=== PATIENT | female | born 1945 | race Caucasian/White ===

== ENCOUNTER 2016-05-28 16:11 | Inpatient (IN) | payer MEDICARE ==
--- NOTE | ~2016-05-28 | HP ---
History And Physical [place] [id number] [facility] [place]. [address] NAME: NELLA KOVACS : 47 STATUS : DIS IN PAT#: [id number] AGE: 71 ADM/REG DATE : 05/28/16 MR#: [id number] REPORT SERV DATE: 07/21/16 DICTATED BY: MASON BIRD DATE: 07/12/16 REPORT STATUS : Draft TRANSCRIBED BY: DYLAN DATE: 07/12/16 DATE OF ADMISSION: 05/28/2016 ADMITTING DIAGNOSES: 1. Deep venous thrombosis. 2. Endometrial carcinoma. HISTORY OF PRESENT ILLNESS: Ms. Nella Kovacs is a 71-year-old female, who was admitted secondary to DVT. She presented with complaint of increasing pain in her lower extremities. Recent studies revealed a new DVT. PAST MEDICAL HISTORY: Her past medical history is consistent with the above-mentioned endometrial carcinoma as well as a history of a carcinoid tumor with anxiety. MEDICATIONS: Current medications include multivitamins and supplements and trazodone. PAST SURGICAL HISTORY: Previous endometrial cancer staging. SOCIAL HISTORY: Negative for any tobacco, alcohol, or illicit drug use. PHYSICAL EXAMINATION: GENERAL: On physical exam, she is awake, alert, and oriented x3 with intact memory, appears to be in no apparent distress. HEENT: Reveals no gross defects. Her extraocular movements are symmetrical and intact. Ears and nose are without defects or lesions. Her hearing is intact and normal for age. NECK: Her neck is symmetrical and supple without thyromegaly or adenopathy. BACK: Her back reveals a straight spine without CVA tenderness. ABDOMEN: Her abdomen is soft, nontender with no palpable masses. HEART: Regular rate and rhythm without abnormal noises. LUNGS: Clear to auscultation bilaterally. EXTREMITIES: Her extremities have some swelling in the lower extremities consistent with her diagnosis of DVT. In summary, this is a 71-year-old female with a history of endometrial carcinoma and carcinoid who now has a DVT. We will continue Lovenox, begin Xarelto and when her symptoms have improved, she will be discharged to home with instructions to follow up at [facility]. JOY/DYLAN Mason Bird M.D. / [id number]
[~2016-05-28 16:11] MED LIST: ALLEGRA180 PO; COMP10B PO; PCET PO; TRANXENE T7.5 MG OR; [UNRECOGNIZED DRUG - OTHER]
[2016-05-28] MEDS ORDERED: B COMPLETE PO (17:05)
[2016-05-28] MEDS ORDERED: VITC500 PO (17:06)
[2016-05-28] MEDS ORDERED: VITE1000 PO (17:07)
[2016-05-28] MEDS ORDERED: VITAMIN D31000 UNIT PO (17:07)
[2016-05-28] MEDS ORDERED: Fish Oil PO (17:08)
[2016-05-28] MEDS ORDERED: OS500+D PO (17:08)
[2016-05-28] MEDS ORDERED: MULTIPLE VIT PO (17:09)
[2016-05-28] MEDS ORDERED: CO Q-10 PO (17:10)
[2016-05-28 18:01] LABS: BASOPHILS ABSOLUTE 0.06 10/3/uL (0.0-0.16); EOSINOPHILS 5.5 %; EOSINOPHILS ABSOLUTE 0.32 10/3/uL (0.0-0.53); HEMATOCRIT 39.1 % (36.0-48.0); HEMOGLOBIN 12.9 g/dL (12.0-16.0); IMMATURE GRANULOCYTES 0.2 %; IMMATURE GRANULOCYTES ABSOLUTE 0.01 10/3/uL (0.0-0.11); LYMPHOCYTES 24.9 %; LYMPHOCYTES ABSOLUTE 1.46 10/3/uL (0.67-4.30); MEAN CORPUSCULAR HEMOGLOB 29.9 pg (26.0-34.0); MONOCYTES ABSOLUTE 0.76 10/3/uL (0.21-1.20); NEUTROPHILS 55.4 %; NEUTROPHILS ABSOLUTE 3.25 10/3/uL (2.02-8.40); PLATELET COUNT 172 10/3/uL (150-400); RBC DISTRIBUTION WIDTH 13.9 % (12.0-16.0); RED CELL COUNT 4.32 10/6/uL (4.0-5.6); WHITE BLOOD CELLS 5.9 10/3/uL (4.5-10.5)
[2016-05-28 18:02] LABS: MANUAL DIFF NO %; MEAN CORPUSCULAR VOLUME 90.5 fL (80-100)
[2016-05-28 18:16] LABS: ALBUMIN 3.3 G/DL (3.5-5.0); ALKALINE PHOSPHATASE 87 U/L (45-117); BUN (BLOOD UREA NITROGEN) 12 MG/DL (6-23); CALCIUM, SERUM 9.2 MG/DL (8.5-10.4); CHLORIDE, SERUM 100 MMOL/L (96-112); CO2 (CARBON DIOXIDE) 30 MMOL/L (24-34); CREATININE 0.76 MG/DL (0.55-1.02); GFR AFRICAN AMERICAN 92 ML/MIN (>=60); GFR NON AFRICAN AMERICAN 79 ML/MIN (>=60); GLUCOSE, SERUM 166 MG/DL (60-99); SGPT(ALT) 31 U/L (5-65); TOTAL BILIRUBIN 0.5 MG/DL (0-1.2); TOTAL PROTEIN 8.6 G/DL (6.0-8.5)
[2016-05-28 18:18] LABS: A/G RATIO 0.6 (0.7-1.9); GLOBULIN 5.3 G/DL (2.5-4.1); POTASSIUM, SERUM 4.7 MMOL/L (3.5-5.3); SGOT(AST) 41 U/L (5-40); SODIUM, SERUM 139 MMOL/L (135-148)
[2016-05-28] MEDS ORDERED: BEN25 PO (18:34)
[2016-05-28] MEDS ORDERED: VITE PO (18:35)
[2016-05-28] MEDS ORDERED: MULTIVIT/MIN PO (18:35)
[2016-05-28] MEDS ORDERED: GARLIC SUPPLEMENT PO (18:36)
[2016-05-28] MEDS ORDERED: ALFALFA PO (18:37)
[2016-05-28] MEDS ORDERED: [UNRECOGNIZED DRUG - OTHER] PO (18:38)
[2016-05-28] MEDS ORDERED: ACET500CAP PO (18:40)
[2016-05-29] MEDS ORDERED: LOP25 PO (12:47)
[2016-05-29] MEDS ORDERED: XARELTO20 MG PO (12:57)
== END 2016-05-29 14:28 | disposition home or self-care (01) | DRG 301 ==
LOC: CDU1 16:11
PROVIDERS: Obstetrics & Gynecology Gynecologic Oncology
DX: I82.401 Acute embolism and thrombosis of unspecified deep veins of right lower extremity (principal); I10 Essential (primary) hypertension; Z23 Encounter for immunization; Z85.89 Personal history of malignant neoplasm of other organs and systems; E66.9 Obesity, unspecified; Z68.34 Body mass index [BMI] 34.0-34.9, adult
CPT/HCPCS: 71260; 74177; 80053; 85025; 90662; 93970; A9270-GY; G0008; Q9967